=== PATIENT | female | born 1945 | race Caucasian/White ===

== ENCOUNTER → 2016-09-14 | Outpatient (CLI) | payer MEDICARE, OTHER ==
[~2016-09-14] MED LIST: REGADENOSON 0.4 MG/5 ML DISP.SYRIN. IV ONE
--- NOTE | 2016-09-14 16:13 | PCVCIMAG ---
APPROVED REPORT Study performed: 09/14/2016 08:53:53 EXAM: Comprehensive 2D, Doppler, and color-flow Echocardiogram Patient Location: Echo lab Status: routine Other Information Study Quality: Good Risk Factors: Cardiac Risk Factors: HTN, Hyperlipidemia Indications CAD Fatigue S/P STENTS 2004 2D Dimensions IVSd: 8.79 (7-11mm)LVOT Diam: 18.93 (18-24mm) LVDd: 30.52 mm PWd: 7.51 (7-11mm)Ascending Ao: 32.20 (22-36mm) LVDs: 15.67 (25-40mm) Left Atrium: 22.21 (27-40mm) Aortic Root: 22.52 mm LV Single Plane 4CH: 71.20 % LV Single Plane 2CH: 71.40 %Esposito's LVEF: 71.30 % Biplane EF: 70.8 % Volumes Left Atrial Volume (Systole) Single Plane 4CH: 44.48 mLSingle Plane 2CH: 54.42 mL LA ESV Index: 31.00 mL/m2 Aortic Valve AoV Peak Nilo.: 1.06 m/s LVOT Max V: 0.72 m/s Mitral Valve E/A Ratio: 1.0 MV Decel. Time: 221.23 ms MV E Max Nilo.: 0.82 m/s MV A Nilo.: 0.81 m/s MV PHT: 60.27 ms MVA (PHT): 3.65 cm2 IVRT: 96.89 ms TDI E/Lateral E': 7.45E/Medial E': 11.71 Medial E' Nilo.: 0.07 m/s Lateral E' Nilo.: 0.11 m/s Pulmonary Valve PV Peak Nilo.: 0.89 m/sPV Peak Gr.: 3.15 mmHg Pulmonary Vein P Vein S: 0.59 m/sP Vein A: 0.25 m/s P Vein D: 0.39 m/sP Vein A Dur.: 124.6 msec P Vein S/D Ratio: 1.51 Tricuspid Valve TR Peak Nilo.: 2.37 m/s TR Peak Gr.: 22.49 mmHg TV Vmax: 0.52 m/s Left Ventricle The left ventricle is normal size. There is normal LV segmental wall motion. There is normal left ventricular wall thickness. Left ventricular systolic function is normal. The left ventricular ejection fraction is within the normal range. LVEF is 65-70%. The left ventricular diastolic function is normal. Right Ventricle The right ventricle is normal size. The right ventricular systolic function is normal. Atria The left atrium size is normal. The right atrium size is normal. Aortic Valve The aortic valve is not well visualized but appears normal. No aortic regurgitation is present. There is no aortic valvular stenosis. Mitral Valve The mitral valve is normal in structure. Mild mitral regurgitation. No evidence of mitral valve stenosis. Tricuspid Valve The tricuspid valve is normal in structure. Mild to moderate tricuspid regurgitation with a PA pressure of 30mmHg. Pulmonic Valve The pulmonary valve is normal in structure. Trace pulmonic regurgitation. Great Vessels The aortic root is normal in size. The ascending aorta is normal in size. IVC is normal in size and collapses with >50% inspiration The pulmonary artery is normal. Pericardium There is no pericardial effusion. There is no pleural effusion. <Conclusion> The left ventricle is normal size. There is normal left ventricular wall thickness. Left ventricular systolic function is normal. The left ventricular ejection fraction is within the normal range. The left ventricular diastolic function is normal. The right ventricle is normal size. The right ventricular systolic function is normal. The left atrium size is normal. There is no aortic valvular stenosis. The mitral valve is normal in structure. There is no pericardial effusion. Mild to moderate tricuspid regurgitation with a PA pressure of 30mmHg.
--- NOTE | 2016-09-15 15:50 | PCVCIMAG ---
APPROVED REPORT Exam: Nuclear Stress Test Indication: CAD Patient Location: Out-Patient Stress Nurse: Lauern Dietz RN, Christy Reid RN [place] Tech:Durga Desmond NMTCB Ht: 5 ft 2 in Wt: 135 lbs BSA: 1.62 m2 HR: 61 bpm BP: 154/75 mmHg BMI: 24.6 Rhythm: Bradycardia Medical History Medical History: Age, Hyperlipidemia, HTN, CVD, CAD Medications: ASA, CoQ10, Pantoprazole, Rosuvastatin Allergies: Prochlorperazine Previous Cardiac Procedures: PCI Pretest Chest Pain Characteristics: No chest pain Exercise History: Sedentary Physical Disabilities: Legs weak d/t mitochondrial disease NM EXAM: Myocardial Perfusion REST/STRESS Imaging Protocol: Rest Tc-99m/Stress Tc-99m 1 day Resting Data Rest SPECT myocardial perfusion imaging was performed in supine position 45 minutes following the intravenous injection of 9.6 mCi of Tc-99m Sestamibi. Time of rest injection: 944 Date: 09/14/2016 Pharmacologic Stress Pharmacologic stress test was performed by injecting Regadenoson 0.4 mg IV push followed by the intravenous injection of 28.6 mCi of Tc-99m Sestamibi. Time of stress injection: 1105 Date: 09/14/2016 The images were gated to evaluate regional wall motion and calculate left ventricular ejection fraction. Study Data Post stress, the left ventricular ejection was 73%.. SSS: 0 SRS: 0 SDS: 0 TID = 0.86. Perfusion No evidence of stress induced ischemia or prior myocardial infarction. Wall Motion Normal left ventricular size and function with no regional wall motion abnormalities. Nuclear Conclusion No evidence of stress induced ischemia or prior myocardial infarction. Normal left ventricular size and function with no regional wall motion abnormalities. Post stress, the left ventricular ejection was 73%.. No change since prior study dated December 2014. Interpreted by: Nazario Nix MD Electronically Approved: 09/14/2016 12:38:22 Stress Test Details Stress Test: Pharmacologic stress was paired with low level exercise. Reason for pharmacologic stress test: physical limitation. HR Resting HR: 61 bpmMax Heart Rate (APMHR): 151 bpm Max HR Achieved: 99 bpmTarget HR (85% APMHR): 128 bpm % of APMHR: 65 Recovery HR: 72 bpm HR response to stress: Normal HR response to stress BP Resting BP: 154/75 mmHg Max BP: 134/66 mmHg Recovery BP: 149/73 mmHg ECG Resting ECG: Sinus Bradycardia Stress ECG: Sinus Rhythm, nonspecific ST-T abnormalities Arrhythmia: None Recovery ECG: Sinus Rhythm, nonspecific ST-T abnormalities Clinical Reason for Termination: Completed protocol Stress Symptoms: None Exercise capacity: 1.6 METs
== END | disposition home or self-care (01) ==
LOC: PCVCIMAG 08:48
PROVIDERS: ATTEND Internal Medicine Cardiovascular Disease
DX: I08.1 Rheumatic disorders of both mitral and tricuspid valves (principal); I25.10 Atherosclerotic heart disease of native coronary artery without angina pectoris; I10 Essential (primary) hypertension; E78.5 Hyperlipidemia, unspecified; R00.1 Bradycardia, unspecified; Z95.5 Presence of coronary angioplasty implant and graft
CPT/HCPCS: 78452; 93017; 93306; A9500; J2785

== ENCOUNTER → 2017-08-07 | Outpatient (CLI) | payer MEDICARE, OTHER | END | disposition home or self-care (01) | LOC: PCVCCLINIC 14:47 | DX: I25.10 Atherosclerotic heart disease of native coronary artery without angina pectoris (principal); I10 Essential (primary) hypertension; E78.00 Pure hypercholesterolemia, unspecified; E03.9 Hypothyroidism, unspecified; Z79.82 Long term (current) use of aspirin; Z79.899 Other long term (current) drug therapy | CPT/HCPCS: 80061; 93005; G0463 ==

== ENCOUNTER → 2018-12-06 | Outpatient (CLI) | payer MEDICARE, OTHER | END | disposition home or self-care (01) | LOC: PCVCCLINIC 15:25 | PROVIDERS: ATTEND Internal Medicine Cardiovascular Disease | DX: I25.10 Atherosclerotic heart disease of native coronary artery without angina pectoris (principal); I10 Essential (primary) hypertension; E78.00 Pure hypercholesterolemia, unspecified; Z72.89 Other problems related to lifestyle; Z79.899 Other long term (current) drug therapy; Z88.8 Allergy status to other drugs, medicaments and biological substances | CPT/HCPCS: 36415; 80061; 93005; G0463 ==

== ENCOUNTER → 2019-01-15 | Outpatient (CLI) | payer MEDICARE, OTHER | END | disposition home or self-care (01) | LOC: PCVCCLINIC 15:50 | PROVIDERS: ATTEND Internal Medicine Cardiovascular Disease | DX: E78.00 Pure hypercholesterolemia, unspecified (principal); I25.10 Atherosclerotic heart disease of native coronary artery without angina pectoris; I10 Essential (primary) hypertension; Z82.49 Family history of ischemic heart disease and other diseases of the circulatory system; Z80.0 Family history of malignant neoplasm of digestive organs; Z72.89 Other problems related to lifestyle; Z79.82 Long term (current) use of aspirin; Z88.8 Allergy status to other drugs, medicaments and biological substances | CPT/HCPCS: 36415; 80061 ==